=== PATIENT | female | born 1945 | race Asian ===

== ENCOUNTER 2017-03-20 16:45 | Outpatient (CLI) | payer OTHER ==
[~2017-03-20 16:45] MED LIST: ASPI81CT89 PO
== END 2017-03-20 19:37 | disposition home or self-care (01) ==
LOC: MRD 16:45
PROVIDERS: ATTEND Family Medicine
DX: M79.671 Pain in right foot (principal); M79.672 Pain in left foot
CPT/HCPCS: 73630